=== PATIENT | male | born 1965 | race African-American/Black ===

== ENCOUNTER 2019-07-04 23:41 | Emergency (ER) | payer OTHER ==
[~2019-07-04] VITALS: Ht 180.3 cm; Wt 104.3 kg
--- NOTE | ~2019-07-04 | EKG ---
[facility] [address] [place] [address] ELECTROCARDIOGRAM REPORT Name: PRIESTARI Room #: [facility].R.#: [id number] Admission: 07/04/19 Attend Phys: Discharge: 07/05/19 Date of : 67 Report #: [id number] THIS REPORT FOR: cc: [facility] - Clinic physician unknown [facility] - Clinic physician unknown Tuan Dickerson MD ~ THIS REPORT FOR: //name// [facility] ED Test Date: 2019-07-04 Test Time: 23:45:47 Pat Name: ARI PRIEST Department: Room: Gender: M Recruiting Operations Consultant: NAYAN : 1965 Requested By: Yohannes Hennessy Order Number: [id number] MD: Measurements Intervals [place] Rate: 83 P: 43 OK: 156 QRS: 24 QRSD: 63 T: 33 QT: 283 QTc: 333 Interpretive Statements Sinus rhythm Left atrial enlargement Probable left ventricular hypertrophy Short QT interval No previous ECG available for comparison [email or web address] By: 44 44 Tuan Dickerson MD /EPI
[2019-07-05] MEDS ORDERED: PROMETH-CODEIN 65 ML PO (00:37)
[2019-07-05 00:51] VITALS: BP 173/92
== END 2019-07-05 01:45 | disposition home or self-care (01) ==
LOC: ER 23:41
DX: R05 Cough (principal); F41.9 Anxiety disorder, unspecified; F17.210 Nicotine dependence, cigarettes, uncomplicated; Z20.828 Contact with and (suspected) exposure to other viral communicable diseases